=== PATIENT | male | born 1985 | race Caucasian/White ===

== ENCOUNTER 2023-11-10 14:50 | Emergency (ER) | payer OTHER ==
[2023-11-10 15:21] VITALS: BP 136/87; PULSE 89; RESP 18; TEMP 98
--- NOTE | 2023-11-10 16:25 | ED ---
Abdominal Pain HPI - General Source: patient Mode of arrival: ambulatory Limitations: no limitations <Shelby Virgen - Last Filed: 11/10/23 16:24> - General Source: patient, RN notes reviewed Mode of arrival: ambulatory Limitations: no limitations - History of Present Illness MD Complaint: abdominal pain <Carmelita Winn - Last Filed: 11/11/23 21:46> - General Chief Complaint: Abdominal Pain Stated Complaint: abdominal pain Time Seen by Provider: 11/10/23 16:24 - History of Present Illness Initial Comments: 38-year-old male presenting with chief complaint of abdominal pain. In the center of the abdomen and also on the right side. History of umbilical hernia. He was sent here by [facility]. No vomiting. Having normal bowel movements. (Shelby Virgen) This is a 38-year-old male who presents to the emergency department for abdominal pain. States that it started about a week ago. Reports a history of liver cirrhosis and had a paracentesis several years ago. Wonders if he may need another paracentesis, however states that at that time his abdomen was much more swollen. Currently at [facility], who sent him in for further evaluation. Denies any nausea/vomiting or diarrhea/constipation. (Susan Winn) - Related Data Allergies Allergy/AdvReac Type Severity Reaction Status Date / Time bee venom protein (honey bee) Allergy Swelling Verified 11/10/23 15:21 [place] nut Allergy Anaphylaxis Verified 11/10/23 15:21 sulfamethoxazole Allergy Rash/Hives Verified 11/10/23 15:21 [From Bactrim] trimethoprim [From Bactrim] Allergy Rash/Hives Verified 11/10/23 15:21 Review of Systems ROS Other: All systems not noted in ROS Statement are negative. <Shelby Virgen - Last Filed: 11/10/23 16:24> ROS Other: All systems not noted in ROS Statement are negative. <Carmelita Winn - Last Filed: 11/11/23 21:46> ROS Statement: Those systems with pertinent positive or pertinent negative responses have been documented in the HPI. Past Medical History Past Medical History: COPD Additional Past Medical History / Comment(s): ascites cirrhosis. [facility] [place]. last alcohol and drug use 11/10/23 History of Any Multi-Drug Resistant Organisms: None Reported Past Surgical History: No Surgical Hx Reported, Orthopedic Surgery Past Psychological History: ADD/ADHD, Anxiety, Bipolar, PTSD Smoking Status: Current every day smoker Past Alcohol Use History: Abuse, Daily, Heavy Past Drug Use History: None Reported, Cocaine, Opiates <Shelby Virgen - Last Filed: 11/10/23 16:24> General Exam Limitations: no limitations <Shelby Virgen - Last Filed: 11/10/23 16:24> Limitations: no limitations General appearance: alert, in no apparent distress Head exam: Present: atraumatic, normocephalic, normal inspection Respiratory exam: Present: normal lung sounds bilaterally. Absent: respiratory distress, wheezes, rales, rhonchi, stridor Cardiovascular Exam: Present: regular rate, normal rhythm, normal heart sounds. Absent: systolic murmur, diastolic murmur, rubs, gallop, clicks GI/Abdominal exam: Present: soft, tenderness (generalized), normal bowel sounds. Absent: distended, guarding, rebound, rigid Neurological exam: Present: alert, oriented X3, CN II-XII intact Psychiatric exam: Present: normal affect, normal mood Skin exam: Present: warm, dry, intact, normal color. Absent: rash <Carmelita Winn - Last Filed: 11/11/23 21:46> - General Exam Comments Initial Comments: Visual Physical Exam Vital signs reviewed General: Well-appearing, nontoxic, no acute distress. Head: Normocephalic, atraumatic Eyes: PERRLA, EOMI ENT: Airway patent Chest: Nonlabored breathing Skin: No visual rash, normal skin tone Neuro: Alert and oriented 3 Musculoskeletal: No gross abnormalities (Shelby Virgen) Course Vital Signs 11/10/23 15:16 Temperature 98.0 F Pulse Rate 89 Respiratory 18 Rate Blood Pressure 136/87 O2 Sat by Pulse 98 Oximetry Medical Decision Making <Shelby Virgen - Last Filed: 11/10/23 16:24> - Lab Data Result diagrams: 11/10/23 22:50 11/10/23 22:50 - Radiology Data Radiology results: report reviewed, image reviewed <Carmelita Winn - Last Filed: 11/11/23 21:46> - Medical Decision Making I performed the quick note portion of this visit, electronically signed Shelby Virgen PA-C (Shelby Virgen) This is a 38 year old male who presents to the emergency department for abdominal pain. Was pt. sent in by a medical professional or institution? @ -[facility] Did you speak to anyone other than the patient for history? @ -No Did you review nursing and triage notes? @ -Yes, and I agree, it is accurate with regards to the patient's symptoms. Were old charts reviewed? @ -No Differential Diagnosis? @ -Differential Abdominal Pain Men: Appendicitis, cholecystitis, diverticulosis, ischemic bowel, pancreatitis, hepatitis, UTI, gastroenteritis, AAA, incarcerated hernia, bowel obstruction, constipation, inflammatory bowel, hepatitis, peptic ulcer disease, splenic infarction, perforated viscus, testicular torsion, this is not meant to be an all-inclusive list EKG interpreted by me (3pts min.)? @ -Not obtained X-rays interpreted by me (1pt min.)? @ -Not obtained CT interpreted by me (1pt min.)? @ -CT scan of the abdomen and pelvis obtained. My interpretation identifies no evidence of bowel wall thickening or free air. U/S interpreted by me (1pt. min.)? @ -Not obtained What testing was considered but not performed? (CT, X-rays, U/S, labs)? Why? @ -None What meds were considered but not given? Why? @ -None Did you discuss the management of the patient with other professionals? @ -No Did you reconcile home meds? @ -No Was smoking cessation discussed for >3mins.? @ -No Was critical care preformed (if so, how long)? @ -No Were there social determinants of health that impacted care today? How? (Homelessness, low income, unemployed, alcoholism, drug addiction, transportation, low edu. Level, literacy, decrease access to med. care, residential, rehab)? @ -Alcoholism, leading to the patient's liver cirrhosis Was there de-escalation of care discussed even if they declined? (Discuss DNR or withdrawal of care, Hospice)? @ -No What co-morbidities impacted this encounter? (DM, HTN, Smoking, COPD, CAD, Cancer, CVA, Hep., AIDS, mental health diagnosis, sleep apnea, morbid obesity)? @ -Cirrhosis, alcoholism Was patient admitted / discharged? @ -Discharged. Lab work unremarkable. CT scan of the abdomen and pelvis demonstrates cirrhosis with evidence for underlying portal venous hypertension. There is no ascites currently evident or other acute findings. Findings reviewed with the patient. The cause of his pain is not entirely clear. Patient discharged back to [facility] in stable condition. Case discussed with ED attending, Dr. Montgomery. Return precautions reviewed in depth, the patient is instructed to return to the emergency department with any new, worsening, or concerning symptoms. Patient verbalized understanding. Undiagnosed new problem with uncertain prognosis? @ -None Drug Therapy requiring intensive monitoring for toxicity (Heparin, Nitro, Insulin, Cardizem)? @ -None Were any procedures done? @ -None Diagnosis/symptom? @ -Abdominal pain Acute, or Chronic, or Acute on Chronic? @ -Acute Uncomplicated (without systemic symptoms) or Complicated (systemic symptoms)? @ -Uncomplicated Side effects of treatment? @ -None Exacerbation, Progression, or Severe Exacerbation] @ -Not applicable Poses a threat to life or bodily function? @ -No (Carmelita Winn) - Lab Data Lab Results 11/10/23 11/10/23 11/10/23 Range/Units 16:52 22:50 22:50 WBC 2.7 L (3.8-10.6) k/uL RBC 3.93 L (4.30-5.90) m/uL Hgb 10.2 L (13.0-17.5) gm/dL Hct 36.9 L (39.0-53.0) % MCV 93.9 (80.0-100.0) fL MCH 26.0 (25.0-35.0) pg MCHC 27.6 L (31.0-37.0) g/dL RDW 13.7 (11.5-15.5) % Plt Count 177 (150-450) k/uL MPV 8.5 Neutrophils % 48 % Lymphocytes % 34 % Monocytes % 12 % Eosinophils % 3 % Basophils % 1 % Neutrophils # 1.3 (1.3-7.7) k/uL Lymphocytes # 0.9 L (1.0-4.8) k/uL Monocytes # 0.3 (0-1.0) k/uL Eosinophils # 0.1 (0-0.7) k/uL Basophils # 0.0 (0-0.2) k/uL Hypochromasia Slight PT (10.0-12.5) sec INR (<1.2) APTT (22.0-30.0) sec Sodium 137 (137-145) mmol/L Potassium 4.0 (3.5-5.1) mmol/L Chloride 102 (98-107) mmol/L Carbon Dioxide 31 H (22-30) mmol/L Anion Gap 4 mmol/L BUN 7 L (9-20) mg/dL Creatinine 0.56 L (0.66-1.25) mg/dL Est GFR (CKD-EPI)AfAm >90 (>60 ml/min/1.73 sqM) Est GFR (CKD-EPI)NonAf >90 (>60 ml/min/1.73 sqM) Glucose 92 (74-99) mg/dL Plasma Lactic Acid Bernardo (0.7-2.0) mmol/L Calcium 9.1 (8.4-10.2) mg/dL Total Bilirubin 0.7 (0.2-1.3) mg/dL AST 30 (17-59) U/L ALT 14 (4-49) U/L Alkaline Phosphatase 108 (38-126) U/L Total Protein 7.5 (6.3-8.2) g/dL Albumin 3.7 (3.5-5.0) g/dL Amylase 43 (30-110) U/L Lipase 33 (23-300) U/L Urine Color Light Yellow Urine Appearance Clear (Clear) Urine pH 8.0 (5.0-8.0) Ur Specific [place] 1.013 (1.001-1.035) Urine Protein Negative (Negative) Urine Glucose (UA) Negative (Negative) Urine Ketones Negative (Negative) Urine Blood Negative (Negative) Urine Nitrite Negative (Negative) Urine Bilirubin Negative (Negative) Urine Urobilinogen <2.0 (<2.0) mg/dL Ur Leukocyte Esterase Negative (Negative) 11/10/23 11/10/23 Range/Units 22:50 22:50 WBC (3.8-10.6) k/uL RBC (4.30-5.90) m/uL Hgb (13.0-17.5) gm/dL Hct (39.0-53.0) % MCV (80.0-100.0) fL MCH (25.0-35.0) pg MCHC (31.0-37.0) g/dL RDW (11.5-15.5) % Plt Count (150-450) k/uL MPV Neutrophils % % Lymphocytes % % Monocytes % % Eosinophils % % Basophils % % Neutrophils # (1.3-7.7) k/uL Lymphocytes # (1.0-4.8) k/uL Monocytes # (0-1.0) k/uL Eosinophils # (0-0.7) k/uL Basophils # (0-0.2) k/uL Hypochromasia PT 11.7 (10.0-12.5) sec INR 1.1 (<1.2) APTT 26.1 (22.0-30.0) sec Sodium (137-145) mmol/L Potassium (3.5-5.1) mmol/L Chloride (98-107) mmol/L Carbon Dioxide (22-30) mmol/L Anion Gap mmol/L BUN (9-20) mg/dL Creatinine (0.66-1.25) mg/dL Est GFR (CKD-EPI)AfAm (>60 ml/min/1.73 sqM) Est GFR (CKD-EPI)NonAf (>60 ml/min/1.73 sqM) Glucose (74-99) mg/dL Plasma Lactic Acid Bernardo 1.5 (0.7-2.0) mmol/L Calcium (8.4-10.2) mg/dL Total Bilirubin (0.2-1.3) mg/dL AST (17-59) U/L ALT (4-49) U/L Alkaline Phosphatase (38-126) U/L Total Protein (6.3-8.2) g/dL Albumin (3.5-5.0) g/dL Amylase (30-110) U/L Lipase (23-300) U/L Urine Color Urine Appearance (Clear) Urine pH (5.0-8.0) Ur Specific [place] (1.001-1.035) Urine Protein (Negative) Urine Glucose (UA) (Negative) Urine Ketones (Negative) Urine Blood (Negative) Urine Nitrite (Negative) Urine Bilirubin (Negative) Urine Urobilinogen (<2.0) mg/dL Ur Leukocyte Esterase (Negative) Disposition <Shelby Virgen - Last Filed: 11/10/23 16:24> Is patient prescribed a controlled substance at d/c from ED?: No <Carmelita Winn - Last Filed: 11/11/23 21:46> Clinical Impression: Abdominal pain Disposition: HOME SELF-CARE Referrals: None,Stated [Primary Care Provider] - 1-2 days
[2023-11-10 17:06] LABS: Appearance,Urine Clear (Clear); Bilirubin,Urine Negative (Negative); Blood,Urine Negative (Negative); Color,Urine Light Yellow; Glucose,Urine (UA) Negative (Negative); Ketones,Urine Negative (Negative); Leukocyte Esterase,Urine Negative (Negative); Nitrite,Urine Negative (Negative); Protein,Urine Negative (Negative); Specific Gravity,Urine 1.013 (1.001-1.035); Urobilinogen,Urine <2.0 mg/dL (<2.0)
[2023-11-10] MEDS ORDERED: KETOROLAC 15 MG/ML 1 ML VIAL IVP STA (21:28)
--- NOTE | 2023-11-11 03:01 | CT ---
EXAMINATION TYPE: CT abdomen pelvis w con DATE OF EXAM: 11/11/2023 COMPARISON: None. HISTORY: abdominal pain nonlocalized CT DLP: 911.6 mGycm, Automated Exposure Control for Dose Reduction was Utilized. CONTRAST: CT scan of the abdomen and pelvis is performed with oral and with IV Contrast, patient injected with 100ml mL of Isovue 370. FINDINGS: LUNG BASES: No significant abnormality is appreciated. LIVER/GB: Lobulated contour to liver consistent with cirrhosis. Recanalized umbilical vein is seen. N o ascites. PANCREAS: No significant abnormality is seen. SPLEEN: Splenomegaly is 16.2 cm long axis coronal image 56. ADRENALS: No significant abnormality is seen. KIDNEYS: No significant abnormality is seen. BOWEL: No abnormal small or large bowel dilatation. PROSTATE/SEMINAL VESICLES: No gross abnormality seen. LYMPH NODES: No greater than 1cm abdominal or pelvic lymph nodes are appreciated. OSSEOUS STRUCTURES: No significant abnormality is seen. OTHER: No significant additional abnormality is seen. IMPRESSION: Cirrhosis with CT evidence for underlying portal venous hypertension. No ascites currentl y. No acute findings identified.
[2023-11-11 09:14] LABS: Basophils % (A) 1 %; Eosinophils # (A) 0.1 k/uL (0-0.7); Eosinophils % (A) 3 %; HCT 36.9 % (39.0-53.0); HGB 10.2 gm/dL (13.0-17.5); Hypochromasia Slight; Lymphocytes # (A) 0.9 k/uL (1.0-4.8); Lymphocytes % (A) 34 %; MCHC 27.6 g/dL (31.0-37.0); MCV 93.9 fL (80.0-100.0); Mean Platelet Volume 8.5; Monocytes # (A) 0.3 k/uL (0-1.0); Monocytes % (A) 12 %; Neutrophils # (A) 1.3 k/uL (1.3-7.7); Neutrophils % (A) 48 %; Platelet Count 177 k/uL (150-450); RBC 3.93 m/uL (4.30-5.90); RDW 13.7 % (11.5-15.5); WBC 2.7 k/uL (3.8-10.6)
[2023-11-11 09:18] LABS: INR 1.1 (<1.2); Partial Thromboplastin Time 26.1 sec (22.0-30.0); Prothrombin Time 11.7 sec (10.0-12.5)
[2023-11-11 14:24] LABS: ALT 14 U/L (4-49); AST 30 U/L (17-59); African American GFR (CKD) >90 (>60 ml/min/1.73 sqM); Albumin 3.7 g/dL (3.5-5.0); Alkaline Phosphatase 108 U/L (38-126); Amylase 43 U/L (30-110); Anion Gap 4 mmol/L; Blood Urea Nitrogen 7 mg/dL (9-20); Calcium 9.1 mg/dL (8.4-10.2); Carbon Dioxide 31 mmol/L (22-30); Chloride 102 mmol/L (98-107); Glucose 92 mg/dL (74-99); Lipase 33 U/L (23-300); Non-African American GFR(CKD) >90 (>60 ml/min/1.73 sqM); Sodium 137 mmol/L (137-145); Total Bilirubin 0.7 mg/dL (0.2-1.3); Total Protein 7.5 g/dL (6.3-8.2)
== END 2023-11-11 05:27 | disposition home or self-care (01) ==
LOC: EC 14:50
DX: F99 Mental disorder, not otherwise specified
CPT/HCPCS: 36415; 74177; 80053; 81003; 82150; 83605; 83690; 85025; 85610; 85730; 96374; 99284